=== PATIENT | male | born 1990 | race Caucasian/White ===

== ENCOUNTER 2018-04-05 16:06 | Emergency (ER) | payer MEDICAID, OTHER | END 2018-04-05 19:00 | disposition home or self-care (01) | LOC: FTE 16:06 | DX: S99.921A Unspecified injury of right foot, initial encounter (principal); X50.1XXA Overexertion from prolonged static or awkward postures, initial encounter; Y92.9 Unspecified place or not applicable; Z87.891 Personal history of nicotine dependence | CPT/HCPCS: 73630; 99283-25 ==